=== PATIENT | male | born 1965 | race Caucasian/White ===

== ENCOUNTER 2016-10-27 12:03 | Observation (INO) | payer OTHER ==
[~2016-10-27] VITALS: Ht 185.4 cm; Wt 78.1 kg
[~2016-10-27 12:03] MED LIST: NEXIUM PO
[2016-10-27 13:13] LABS: HEMATOCRIT 46.2 % (38.0-50.0); MCH 32.2 PG (29.0-34.0); MCHC 35.7 G/DL (30.0-36.0); MCV 90.1 FL (86-99); MEAN PLAT.VOLUME 10.5 uM^3 (9.0-12.4); PLATELET COUNT 223 K/uL (156-360); RBC DIS.WIDTH-CV 11.7 % (11.8-14.6); RBC DIS.WIDTH-SD 37.4 % (39-53); RED BLOOD COUNT 5.13 M/uL (4.00-5.50); WHITE BLOOD COUNT 5.8 K/uL (4.1-10.2)
[2016-10-27 13:30] LABS: CHLORIDE 104 mEq/L (99-109); POTASSIUM 3.9 mEq/L (3.7-5.4); SODIUM 140 mEq/L (136-147)
[2016-10-27 13:32] LABS: TROP-I INTERPRETATION NEGATIVE; TROPONIN-I < 0.01 ng/mL (0.0-0.30)
[2016-10-27 13:32] LABS: GLUCOSE 82 mg/dL (70-99)
[2016-10-27 13:34] LABS: ANION GAP 10 MEQ/L (2-14)
[2016-10-27 13:36] LABS: GFR ESTIMATE (CALCULATED) > 59 mL/min/
[2016-10-27 13:37] LABS: UREA NITROGEN (BUN) 12 mg/dL (9-23)
[2016-10-27] MEDS ORDERED: SAW PALMETTO80 MG PO (14:20)
[2016-10-27] MEDS ORDERED: OMEGA-3 KRILL1 EAC3 PO (14:21)
[2016-10-27] MEDS ORDERED: BIOTIN1000 MICRO PO (14:21)
[2016-10-27] MEDS ORDERED: MULTI VITAMIN1 EACH PO (14:22)
[2016-10-27] MEDS ORDERED: OLIVE LEAF EXT250 MG PO (14:22)
[2016-10-27] MEDS ORDERED: [UNRECOGNIZED DRUG - OTHER] BOTH EYES (14:25)
[2016-10-27 17:56] VITALS: BP 146/89
[2016-10-27 20:00] VITALS: BP 122/82
[2016-10-27 23:57] VITALS: BP 116/76
[2016-10-28 00:59] LABS: TROP-I INTERPRETATION NEGATIVE; TROPONIN-I < 0.01 ng/mL (0.0-0.30)
[2016-10-28 04:04] VITALS: BP 111/70
[2016-10-28 05:55] LABS: MCH 32.8 PG (29.0-34.0); MCHC 35.4 G/DL (30.0-36.0); MCV 92.6 FL (86-99); PLATELET COUNT 201 K/uL (156-360); RBC DIS.WIDTH-CV 11.9 % (11.8-14.6); RBC DIS.WIDTH-SD 40.2 % (39-53); RED BLOOD COUNT 4.97 M/uL (4.00-5.50); WHITE BLOOD COUNT 6.5 K/uL (4.1-10.2)
[2016-10-28 06:20] LABS: ANION GAP 7 MEQ/L (2-14); CHLORIDE 104 MEQ/L (99-109); GFR ESTIMATE (CALCULATED) > 59 mL/min/; GLUCOSE 102 mg/dL (70-99); SAMPLE HEMOLYSIS CHECK 0; SAMPLE ICTERIC CHECK 0; SAMPLE LIPEMIA CHECK 0; SODIUM 139 MEQ/L (136-147); UREA NITROGEN (BUN) 12 mg/dL (9-23)
[2016-10-28 06:24] LABS: TROP-I INTERPRETATION NEGATIVE; TROPONIN-I < 0.01 ng/mL (0.0-0.30)
[2016-10-28 08:03] VITALS: BP 107/73
[2016-10-28] MEDS ORDERED: MOTRIN400 MG PO (10:12)
[2016-10-28] MEDS ORDERED: LO-DOSE ASPIRIN81 M2 PO (16:18)
== END 2016-10-28 12:11 | disposition home or self-care (01) ==
LOC: EME 12:03 → 5WEST 15:28 → EDOF 15:28 → 5WEST 17:37
PROVIDERS: Nurse Practitioner Adult Health
DX: R07.9 Chest pain, unspecified (principal); E03.9 Hypothyroidism, unspecified; Z91.018 Allergy to other foods
CPT/HCPCS: 71020; 80048; 84484; 85027; 93005; 99281; 99285; G0378